=== PATIENT | female | born 1980 | race Caucasian/White ===

== ENCOUNTER 2024-06-15 23:15 | Emergency (ER) | payer OTHER ==
[~2024-06-15] VITALS: Ht 157.5 cm; Wt 71.4 kg
[2024-06-15] MEDS ORDERED: KETOROLAC TROMETHAMINE 60 MG/2 ML VIAL ONE (23:29)
[2024-06-15] MEDS: KETOROLAC TROMETHAMINE 60 MG/2 ML VIAL IM STA (23:42)
[2024-06-16] MEDS ORDERED: ULTRAM 50MG50 MG PO (00:35)
[2024-06-16] MEDS ORDERED: KETOROLAC TROME10 MG PO (00:35)
[2024-06-16] MEDS ORDERED: ONDANSETRON ODT4 MG PO (00:35)
[2024-06-16 00:42] VITALS: PULSE 93; RESP 16; TEMP 98.4; O2SAT 100
== END 2024-06-16 00:45 | disposition home or self-care (01) ==
LOC: ER 23:20
DX: M54.2 Cervicalgia (principal); E28.2 Polycystic ovarian syndrome
CPT/HCPCS: 72125; 99283; J1885